=== PATIENT | female | born 1965 | race Caucasian/White ===

== ENCOUNTER 2024-04-10 15:31 | Emergency (ER) | payer MEDICAID, SELFPAY ==
[2024-04-10 15:32] VITALS: BMI 17.4
--- NOTE | 2024-04-10 15:56 | XR_ITS ---
Examination: Wrist, right 3 views Technique: Wrist AP, oblique, lateral 3 views Date and time of exam: April 10, 2024 1620 hrs. Indications: Patient fell today with injury to the wrist, wrist pain. Findings: On the lateral view suspicious for nondisplaced fracture distal radial metaphysis Carpal bones intact Impression: On the lateral view suspicious for nondisplaced fracture distal radial metaphysis
[2024-04-10 16:35] VITALS: BP 184/90; PULSE 98; RESP 18; TEMP 36.7; O2SAT 96
--- NOTE | 2024-04-10 18:16 | EDNOTE_ITS ---
Upper Extremity Injury RME/HPI General Chief Complaint: Hand/Wrist Problems Stated Complaint: FALL, RIGHT WRIST PAIN Time Seen by Provider: 04/10/24 18:16 Arrival date/time: 04/10/24 15:31 58 year old female present to emergency room with c/o of GLF injury right wrist today. denies head/neck or blood thinner uses LOCATION: wrist SEVERITY: Symptoms are described as being severe with limitations on activities of daily living QUALITY: Symptoms are described as being dull or achy CONTEXT: GLF injury wrist DURATION/TIMING: The symptoms started approximately immediately prior to arrival ago and have been constant this then. ASSOCIATED SYMPTOMS: The patient is unable to identify any other associated symptoms. MODIFYING FACTORS: The patient is unable to identify any alleviating or aggravating symptoms. PERTINENT ROS: no fevers, no headache, no neck or chest pain, no unexplained nausea or vomiting, no focal neurological deficits REVIEW OF SYSTEMS: See History of Present Illness - with the exception of those mentioned in the history of present illness, all other systems reviewed and reported as negative GENERAL: In general the patient is awake, interactive, in an emergency department gurney. HEAD/EYES/EARS/NOSE/THROAT: normo-cephalic, atraumatic, mucus membranes are moist, anicteric, palpebral conjunctiva is pink, trachea is midline. CARDIOVASCULAR: regular rate and regular rhythm, no murmurs, heart sounds are not distant, strong pulses in all four extremities that are equal and symmetric bilateral upper and lower extremities, normal capillary refill. CHEST/PULMONARY: normal chest rise and fall, good air movement, clear to auscultation bilaterally, normal inspiratory to expiratory ratios without evidence of respiratory distress. NECK: No midline/Paraspinal tenderness, no step off ROM/Strenght intact No Kernig and bruzinski sign. No trauma ABDOMEN: soft, not tender, no masses appreciated BACK: normal range of motion without pain. NEUROLOGICAL: cranio-facial features are symmetric, moves all four extremities equally without obvious limitations or weakness. EXTREMITY: no tenderness to palpation over the long bones or large joints of the bilateral upper and lower extremities, no joint swelling, no joint erythema, no signs of trauma, no unilateral leg swelling and no peripheral edema. SKIN: warm, dry, well-perfused, no jaundice, no rash, no telangiectasias or petechia. PSYCH: calm, cooperative, no evidence of psychosis or agitation RME / HPI RME / HPI narrative: 04/10/24 15:31 58 year old female present to Ed for c/o of wrist injury I have greeted and performed a focused initial assessment of this patient. A comprehensive ED assessment and evaluation of the patient, analysis of all test results, and completion of the medical decision making process will be conducted by additional ED providers. Related Data Previous Rx's ?Medication ?Instructions ?Recorded cephalexin 500 mg capsule (Keflex) 500 mg PO QID PRN INFLAMMATION 7 03/16/16 days #0 caps ibuprofen 600 mg tablet 600 mg PO Q6HR PRN PAIN #20 tabs 03/16/16 Sulfamethoxazole/Trimethoprim DS * 1 tab PO BID #14 tabs 03/17/16 (BACTRIM DS *) Allergies Allergy/AdvReac Type Severity Reaction Status Date / Time Penicillins Allergy Severe LIPS AND Verified 04/10/24 15:32 TONGUE SWELLING Course Course Course Narrative: Workup: XR Wrist Findings: Fracture Patient does not currently demonstrate complications of fracture such as compartment syndrome, arterial or nerve injury. Interventions: Immobilization: The fracture has been satisfactorily immobilized, and the patient has been given appropriate analgesia. Disposition: Patient will be discharged with strict return precautions and follow up with primary MD within 24-48 hours for further evaluation including referral to an orthopedist for follow up?within the next 4-7 days for outpatient definitive fracture management. Quality Measures none Orders Category Date Time Status sling [Splint / Immobilizer] STAT Care 04/10/24 18:17 Active XR wrist comp RT min 3V Stat Exams 04/10/24 15:56 Completed Ibuprofen Tab [Motrin Tab] Med 04/10/24 18:17 Discontinued 800 mg PO X1 ONE Vital Signs Vital signs: Vital Signs Temperature 98.1 F 04/10/24 16:35 Pulse Rate 98 04/10/24 16:35 Respiratory Rate 18 04/10/24 16:35 Blood Pressure 184/90 H 04/10/24 16:35 Pulse Oximetry (%) 96 04/10/24 16:35 Oxygen Delivery Method Room Air 04/10/24 16:35 Extremity Injury Patient data External records reviewed:: None Clinical information provided by:: patient Social determinants that could affect healthcare access:: none Patient has the following chronic illnesses:: none How is presenting disease/condition affected by chronic disease/condition?: no chronic disease Evaluation data The following diagnostics were reviewed and interpreted by me:: radiology exam(s) Lab and/or radiology exams considered but not ordered:: none Interpretation Summary: cc: Braxton Roldan MD; Temporary Provider,ED ~ Examination: Wrist, right 3 views Technique: Wrist AP, oblique, lateral 3 views Date and time of exam: April 10, 2024 1620 hrs. Indications: Patient fell today with injury to the wrist, wrist pain. Findings: On the lateral view suspicious for nondisplaced fracture distal radial metaphysis Carpal bones intact Impression: On the lateral view suspicious for nondisplaced fracture distal radial metaphysis splint and ortho referral given Medications / Prescriptions Medications or Prescriptions considered but not ordered:: none Medication administrations:: Medication Administration History Discontinued Medications Ibuprofen (Ibuprofen Tab 400 Mg Tablet) 800 mg PO X1 ONE Stop: 04/10/24 18:18 Last Admin: 04/10/24 18:26 Dose: 800 mg Documented By: OA as stated above Consultations Consultation(s) initiated? (list below): No Diagnosis Upper Extremity Injury Differential Diagnosis: sprain and strain of wrist, fracture of wrist and fracture of hand Most likely diagnosis given after review of the tests above:: wrist fracture Admission Indicated Admission indicated?: not indicated Admission Request Was there a request for admission?: No Disposition Plan Disposition Plan: Discharge Discharge Attestation Discharge Attestation: The patient and all family members were given an opportunity to ask questions and understood the discharge instructions. Discharge instructions specifically effects, indications for sooner follow up or return to the emergency department, and the expected course of current diagnosis. Patient condition: Stable Discharge Plan Plan Patient Disposition: HOME (Self Care) Prescriptions/Referrals Prescriptions/Med Rec: No Action cephalexin [Keflex] 500 MG capsule 500 mg PO QID PRN (Reason: INFLAMMATION) 7 Days Qty: 0 0RF ibuprofen 600 MG tablet 600 mg PO Q6HR PRN (Reason: PAIN) Qty: 20 0RF Sulfamethoxazole/Trimethoprim DS * (BACTRIM DS *) 1 TAB tablet 1 tab PO BID Qty: 14 0RF Referrals: Akash Mercado MD [Physician] - In 1 week Problem List Clinical Impression: Fracture of wrist Patient/Caregiver Discharge Instructions Education Materials: ED Fracture, Wrist, General Print Language: Albanian Stand Alone Forms: Kayla Award Info., Patient Portal Info Letter
[2024-04-10] MEDS: IBUPROFEN TAB 400 MG TABLET 800 MG PO (18:26)
== END 2024-04-10 19:43 | disposition home or self-care (01) ==
PROVIDERS: Emergency Provider Emergency Medicine
DX: S52.501A Unspecified fracture of the lower end of right radius, initial encounter for closed fracture (principal); X58.XXXA Exposure to other specified factors, initial encounter
CPT/HCPCS: 29126; 73110; 99283; A9270

== ENCOUNTER → 2024-04-27 | Outpatient (CLI) | payer MEDICAID, SELFPAY ==
--- NOTE | 2024-04-27 10:26 | XR_ITS ---
Examination: Hand, right 3 views Technique: Hand AP, oblique, lateral 3 views Date and time of exam: April 27, 2024 10:30 AM INDICATIONS: Patient fell 2 days ago with injury to the right hand, right hand pain FINDINGS: Moderate osteopenia Fracture distal radial metaphysis without significant displacement IMPRESSION: Fracture distal radial metaphysis, without significant displacement Fracture is better visualized on the wrist films April 10, 2024
== END | disposition home or self-care (01) ==
DX: S52.91XA Unspecified fracture of right forearm, initial encounter for closed fracture (principal); W19.XXXA Unspecified fall, initial encounter
CPT/HCPCS: 73130

== ENCOUNTER → 2024-05-13 | Outpatient (CLI) | payer MEDICAID, SELFPAY ==
--- NOTE | 2024-05-13 16:03 | XR_ITS ---
Examination: Right elbow 3 views Technique: Elbow AP, oblique, lateral 3 views Exam date and time: May 13, 2024 1610 hrs. Indications: Patient fell today with injury to right elbow, elbow pain. Findings: No acute fracture No dislocation No foreign body Impression: No acute fracture.
--- NOTE | 2024-05-13 16:03 | XR_ITS ---
Examination: Wrist, right 3 views Technique: Wrist AP, oblique, lateral 3 views Date and time of exam: May 13, 2024 1610 hrs. Indications: Patient fell today with intravenous, wrist pain. Findings: View suspicious for nondisplaced fracture distal radial metaphysis Carpal bones intact Impression: Findings suspicious for mild acute fracture distal radial metaphysis
--- NOTE | 2024-05-13 16:03 | XR_ITS ---
Examination: Hand, right 3 views Technique: Hand AP, oblique, lateral 3 views Date and time of exam: May 13, 2024 1610 hrs. Indications: Patient fell today with injury to the right hand, right hand pain. Findings: Significant osteopenia No acute fracture No dislocation Impression: No acute fracture
== END | disposition home or self-care (01) ==
DX: S59.901A Unspecified injury of right elbow, initial encounter (principal); S69.91XA Unspecified injury of right wrist, hand and finger(s), initial encounter; W19.XXXA Unspecified fall, initial encounter
CPT/HCPCS: 73080; 73110; 73130